=== PATIENT | female | born 1960 | race Two or more races ===

== ENCOUNTER 2019-07-28 22:10 | Emergency (ER) | payer MEDICAID ==
[~2019-07-28] VITALS: Ht 167.6 cm; Wt 71.0 kg
[2019-07-28 22:17] VITALS: BP 158/109
== END 2019-07-28 23:30 | disposition left against medical advice (07) ==
LOC: ER 22:10
DX: R41.82 Altered mental status, unspecified (principal); Z53.21 Procedure and treatment not carried out due to patient leaving prior to being seen by health care provider